=== PATIENT | female | born 1970 | race Asian ===

== ENCOUNTER → 2016-09-02 11:48 | Outpatient (CLI) | payer OTHER | END | disposition home or self-care (01) | LOC: AMB 11:48 | DX: Z04.3 Encounter for examination and observation following other accident (principal) ==

== ENCOUNTER 2016-09-02 15:17 | Emergency (ER) | payer OTHER ==
[~2016-09-02] VITALS: Ht 167.6 cm; Wt 122.5 kg
[2016-09-02 16:01] LABS: SODIUM 137 mmol/L (136-145)
== END 2016-09-02 16:53 | disposition home or self-care (01) ==
LOC: ED 15:17
DX: S16.1XXA Strain of muscle, fascia and tendon at neck level, initial encounter (principal); V43.52XA Car driver injured in collision with other type car in traffic accident, initial encounter
CPT/HCPCS: 36415; 80048; 99282